=== PATIENT | male | born 1950 ===

== ENCOUNTER 2021-08-21 20:16 | Outpatient (NON) | payer MEDICARE, SELFPAY ==
[2021-08-21 20:45] LABS: INR 2.5; Prothrombin Time 25.4 Seconds (9.50-12.10)
== END 2021-08-21 20:17 | disposition home or self-care (01) ==
LOC: CHSLAB 20:33
DX: I48.19 Other persistent atrial fibrillation (principal); Z79.01 Long term (current) use of anticoagulants
CPT/HCPCS: 36415; 85610